=== PATIENT | female | born 1940 | race African-American/Black ===

== ENCOUNTER 2017-12-13 15:07 | Outpatient (CLI) | payer MEDICARE, MEDICAID | END 2017-12-13 15:08 | disposition home or self-care (01) | LOC: BICMAMMO 15:07 | PROVIDERS: ATTEND Internal Medicine | DX: Z12.31 Encounter for screening mammogram for malignant neoplasm of breast (principal); R92.1 Mammographic calcification found on diagnostic imaging of breast; Z85.41 Personal history of malignant neoplasm of cervix uteri | CPT/HCPCS: 77063; 77067 ==

== ENCOUNTER 2018-06-14 16:42 | Emergency (ER) | payer MEDICARE, MEDICAID ==
[2018-06-14 17:54] LABS: Bilirubin Negative (Negative); Blood, Urine Moderate (Negative); Clarity CLEAR (Clear); Glucose, Urine (Dipstick) Negative (Negative); Leukocyte Negative (Negative); Nitrite Negative (Negative); Protein, Urine (Dipstick) Negative (Neg-Trace); Specific Gravity, Urine 1.005 (1.002-1.036); Urobilinogen 0.2 mg/dL (0.2-1.0); pH, Urine 7.5 (5.0-9.0)
[2018-06-14 17:56] LABS: #Basophils 0.1 thou/uL (0.0-0.2); #Lymphocytes 1.3 thou/uL (1.20-3.40); #Monocytes 0.7 thou/uL (0.11-0.59); #Neutrophils 7.6 thou/uL (1.40-6.50); %Basophils 0.6 % (0.0-1.0); %Eosinophils 0.2 % (0.0-10.0); %Lymphocytes 13.8 % (21.0-51.0); %Monocytes 7.2 % (0.0-10.0); %Neutrophils 78.3 % (42.0-75.0); Hemoglobin 13.8 g/dL (12.0-16.0); Mean Corpuscular HGB CONC 32.6 g/dL (32.0-36.0); Mean Corpuscular Hemoglobin 29.5 pg (27.0-31.0); Mean Corpuscular Volume 90.7 fL (78.0-98.0); Mean Platelet Volume 7.5 fL (7.4-10.4); Platelet Count 300 thou/uL (130-400); RBC Distribution Width 12.8 % (11.5-14.5); Red Blood Cell (RBC) Count 4.66 mill/uL (4.20-5.40); White Blood Cell (WBC) Count 9.7 thou/uL (4.8-10.8)
[2018-06-14 17:59] LABS: Bacteria/HPF None Seen HPF (None Seen); Hyaline Casts/LPF 0-3 HYALINE CAST LPF (0-3 Hyaline); Squamous Epithelial 0-3 HPF (0-3); WBC/HPF None Seen HPF (0-3)
[2018-06-14 18:14] LABS: ALT (SGPT) 9 U/L (8-55); AST (SGOT) 13 U/L (5-34); Albumin 4.2 g/dL (3.4-4.8); Alkaline Phosphatase 81 U/L (40-150); Anion Gap 14 mmol/L (10-20); BUN (Urea Nitrogen) 5 mg/dL (9.8-20.1); Bilirubin, Total 0.6 mg/dL (0.2-1.2); Calc. Creatinine Clearance 0 mL/min (70-130); Carbon Dioxide 23 mmol/L (23-31); Chloride 103 mmol/L (98-107); Estimated GFR-MDRD Greater than 90; Globulin 3.6 g/dL (2.4-3.5); Glucose 149 mg/dL (83-110); Potassium 3.4 mmol/L (3.5-5.1); Protein, Total 7.8 g/dL (6.0-8.3); Sodium 137 mmol/L (136-145)
== END 2018-06-14 18:40 | disposition home or self-care (01) ==
LOC: ERS 16:42
DX: K04.7 Periapical abscess without sinus (principal); E11.9 Type 2 diabetes mellitus without complications; I10 Essential (primary) hypertension; F41.9 Anxiety disorder, unspecified; Z85.42 Personal history of malignant neoplasm of other parts of uterus; Z79.82 Long term (current) use of aspirin; Z79.84 Long term (current) use of oral hypoglycemic drugs; Z79.899 Other long term (current) drug therapy
CPT/HCPCS: 36415; 80053; 81003; 81015; 85025; 93005

== ENCOUNTER 2022-09-18 23:34 | Inpatient (IN) | payer OTHER ==
[2022-09-18] MEDS ORDERED: Heparin 25,000 units/D5W 500 ML ONE (23:47)
[2022-09-18 23:52] LABS: #Basophils 0.1 thou/uL (0.0-0.2); #Lymphocytes 1.9 thou/uL (1.20-3.40); #Monocytes 0.6 thou/uL (0.11-0.59); #Neutrophils 4.5 thou/uL (1.40-6.50); %Basophils 1.1 % (0.0-1.0); %Eosinophils 0.5 % (0.0-10.0); %Lymphocytes 26.7 % (21.0-51.0); %Monocytes 8.4 % (0.0-10.0); %Neutrophils 63.4 % (42.0-75.0); Hemoglobin 13.7 g/dL (12.0-16.0); Mean Corpuscular HGB CONC 32.9 g/dL (32.0-36.0); Mean Corpuscular Hemoglobin 30.9 pg (27.0-31.0); Mean Corpuscular Volume 93.9 fl (78.0-98.0); Mean Platelet Volume 7.7 fL (7.4-10.4); Platelet Count 290 10x3/uL (130-400); RBC Distribution Width 12.8 % (11.5-14.5); Red Blood Cell (RBC) Count 4.43 mill/uL (4.20-5.40); White Blood Cell (WBC) Count 7.1 10x3/uL (4.8-10.8)
[2022-09-18] MEDS ORDERED: Diltiazem 125 MG/25 ML ONE (23:52)
[2022-09-19] MEDS ORDERED: Diltiazem 125 MG/25 ML ONE (00:02)
[2022-09-19 00:08] LABS: INR-International Normal Ratio 1.1; Prothrombin Time 14.6 sec (12.0-14.7)
[2022-09-19 00:13] LABS: PTT 145.4 sec (22.9-36.1)
[2022-09-19 00:16] LABS: ALT (SGPT) 15 U/L (8-55); AST (SGOT) 25 U/L (5-34); Albumin 4.4 g/dL (3.4-4.8); Alkaline Phosphatase 103 U/L (40-110); Anion Gap 18 mmol/L (10-20); BUN (Urea Nitrogen) 6 mg/dL (9.8-20.1); Bilirubin, Total 0.7 mg/dL (0.2-1.2); Calc. Creatinine Clearance 0 mL/min (70-130); Calcium 9.8 mg/dL (7.8-10.44); Carbon Dioxide 18 mmol/L (23-31); Chloride 97 mmol/L (98-107); Estimated GFR 73; Globulin 4.1 g/dL (2.4-3.5); Glucose 176 mg/dL (83-110); Lipase 97 U/L (8-78); Magnesium 1.4 mg/dL (1.6-2.6); Potassium 3.7 mmol/L (3.5-5.1); Protein, Total 8.5 g/dL (5.8-8.1); Sodium 129 mmol/L (136-145)
[2022-09-19 00:40] LABS: CKMB 4.7 ng/mL (0-6.6)
[2022-09-19] MEDS ORDERED: Magnesium 2 GM/50 ML BAG (IN WATER) ONE ×2 (00:44→04:01)
[2022-09-19] MEDS ORDERED: Dextrose 5% in Water 1,000 ML IV PRN (02:43)
[2022-09-19] MEDS ORDERED: Bisacodyl 10 MG SUPP PR PRN (02:43)
[2022-09-19] MEDS ORDERED: HumaLOG 300 UNITS/3 ML VIAL SC PRN (02:43)
[2022-09-19] MEDS ORDERED: Dextrose 50% Abboject 50 ML SYRINGE SLOW IVP PRN (02:43)
[2022-09-19] MEDS ORDERED: Morphine 2 MG/ML VIAL SLOW IVP PRN (02:43)
[2022-09-19] MEDS ORDERED: Acetaminophen 325 MG TAB PO PRN (02:43)
[2022-09-19] MEDS ORDERED: Nitroglycerin 0.4 MG TAB (25 Tab Bottle) SL PRN (02:43)
[2022-09-19] MEDS ORDERED: Ondansetron PF 4 MG/2 ML Vial IVP PRN (02:43)
[2022-09-19] MEDS ORDERED: Bisacodyl 5 MG TAB PO PRN (02:43)
[2022-09-19] MEDS ORDERED: Senokot S 8.6-50 MG TAB PO PRN (02:43)
[2022-09-19] MEDS ORDERED: Heparin 25,000 units/D5W 500 ML IVPB SCH (02:45)
[2022-09-19] MEDS ORDERED: Heparin 10,000 UNITS/ 10 ML VIAL SLOW IVP SCH (02:45)
[2022-09-19] MEDS ORDERED: Sodium Chloride 0.9% 1,000 ML IV SCH (02:45)
[2022-09-19 03:10] LABS: Hemoglobin 12.7 g/dL (12.0-16.0); Platelet Count 279 10x3/uL (130-400)
[2022-09-19 03:29] LABS: SARS-CoV-2 NAA Rapid Test Not Detected (NotDetected)
[2022-09-19 03:38] LABS: Troponin I 0.146 ng/mL (< 0.028)
[2022-09-19] MEDS: Magnesium 2 GM/50 ML(in water) 2 GM in Premix Bag 1 BAG IVPB SCH ×2 (04:00)
[2022-09-19 04:55] VITALS: BMI 25.2
[2022-09-19] MEDS ORDERED: Heparin 25,000 units/D5W 500 ML ONE (06:29)
[2022-09-19] MEDS ORDERED: Ondansetron ODT 4 MG TAB ONE (06:29)
[2022-09-19 06:34] LABS: Troponin I 0.132 ng/mL (< 0.028)
[2022-09-19] MEDS ORDERED: Aspirin Chewable 81 MG TAB ONE (09:55)
[2022-09-19] MEDS ORDERED: Metoprolol Tartrate 25 MG TAB ONE (09:55)
[2022-09-19] MEDS: Metoprolol Tartrate 25 MG TAB PO SCH ×2 (09:57→21:34)
[2022-09-19] MEDS: Aspirin 81 mg Enteric Coated Tablet PO SCH (09:57)
[2022-09-19] MEDS ORDERED: Atorvastatin Calcium 20 MG TAB PO SCH (21:00)
[2022-09-20 05:40] LABS: Cardiac Risk 3.4 (Less than 4.5)
[2022-09-20] MEDS: Aspirin 81 mg Enteric Coated Tablet PO SCH (10:15)
[2022-09-20] MEDS: Metoprolol Tartrate 25 MG TAB PO SCH (10:15)
[2022-09-20 11:51] VITALS: BP 134/91; TEMP 98.5
[2022-09-22] MEDS ORDERED: FLU VACC QS2022-23(65YR UP)/PF 240 MCG/0.7 ML SYRINGE IM ONE (09:00)
== END 2022-09-20 13:36 | disposition home or self-care (01) | DRG 308 ==
LOC: ERS 23:34 → ERHOLD 09-19 02:43 → 2NO 09-19 15:41
PROVIDERS: ADMIT Family Medicine; ATTEND Internal Medicine
DX: I48.91 Unspecified atrial fibrillation (principal); I50.33 Acute on chronic diastolic (congestive) heart failure; E87.1 Hypo-osmolality and hyponatremia; I24.8 Other forms of acute ischemic heart disease; I25.10 Atherosclerotic heart disease of native coronary artery without angina pectoris; R94.31 Abnormal electrocardiogram [ECG] [EKG]; E78.5 Hyperlipidemia, unspecified; F41.9 Anxiety disorder, unspecified; E78.00 Pure hypercholesterolemia, unspecified; I11.0 Hypertensive heart disease with heart failure; E83.42 Hypomagnesemia; E11.9 Type 2 diabetes mellitus without complications; Z20.822 Contact with and (suspected) exposure to COVID-19; Z79.01 Long term (current) use of anticoagulants; Z95.1 Presence of aortocoronary bypass graft; Z88.0 Allergy status to penicillin; Z90.710 Acquired absence of both cervix and uterus; Z98.890 Other specified postprocedural states; Z79.899 Other long term (current) drug therapy; Z79.84 Long term (current) use of oral hypoglycemic drugs; Z85.42 Personal history of malignant neoplasm of other parts of uterus
CPT/HCPCS: 36415; 36416; 71045; 80053; 80061; 82553; 83690; 83735; 83880; 84484; 85014; 85018; 85025; 85049; 85610; 85730; 93005; 93306; 96374; 96375; J1644; J3475; J7050; Q0162; U0002